=== PATIENT | male | born 1990 | race Caucasian/White ===

== ENCOUNTER 2022-07-13 01:56 | Emergency (ER) | payer OTHER ==
[~2022-07-13 01:56] MED LIST: CLARITIN10 MG PO; MOTRIN800 MG PO
[2022-07-13 02:30] LABS: BASO # 0.1 10*3/uL (0.0-0.1); BASO % 0.7 % (0.0-1.0); EOS # 0.4 10*3/uL (0.0-0.4); HEMATOCRIT 39.9 % (42.0-52.0); LYMPH # 2.3 10*3/uL (1.3-4.4); LYMPH % 26.9 % (27.0-41.0); MEAN CELL VOLUME 86.9 fl (80.0-94.0); MEAN CORPUSCULAR HGB 30.1 pg (27.0-31.0); MEAN CORPUSCULAR HGB CONC 34.6 g/dl (33.0-37.0); MEAN PLATELET VOLUME 8.4 fl (9.6-12.3); MONO # 0.7 10*3/uL (0.1-1.0); MONO % 8.3 % (3.0-9.0); NEUT # 5.1 10*3/uL (2.3-7.9); NEUT % 58.8 % (47.0-73.0); PLATELET COUNT AUTOMATED 342 10*3/uL (130-400); RED BLOOD COUNT 4.59 10*6/uL (4.50-5.90); RED CELL DISTRI WIDTH 11.8 % (0-14.5); WHITE BLOOD COUNT 8.6 10*3/uL (4.8-10.8)
[2022-07-13 02:53] LABS: ALKALINE PHOSPHATASE 136 U/L (45-117); BUN 21 mg/dl (7-24); CHLORIDE 106 mmol/L (98-107); CREATININE 1.19 mg/dL (0.70-1.30); POTASSIUM 3.3 mmol/L (3.5-5.1); SGOT/AST 16 IU/L (3-35); SGPT/ALT 24 U/L (12-78); SODIUM 138 mmol/L (136-145); TOTAL PROTEIN 7.5 gm/dL (6.4-8.2)
[2022-07-13 04:01] LABS: BILIRUBIN Negative (Negative); BLOOD 2+ (Negative); CLARITY Turbid (Clear); COLOR Dark Yellow (Yellow); GLUCOSE Negative (Negative); KETONE Trace (Negative); LEUKO ESTERASE 2+ (Negative); NITRITE Negative (Negative); PH 5.5 (4.5-8.0); SPECIFIC GRAVITY >= 1.030 (1.001-1.030)
[2022-07-13 04:13] LABS: BACTERIA 2+; RBC 16-20 rbc/hpf (0-2); WBC 31-40 wbc/hpf (0-5)
[2022-07-13] MEDS ORDERED: CEPHALEXIN500 M1 PO (06:22)
== END 2022-07-13 06:30 | disposition home or self-care (01) ==
LOC: ED 01:56
PROVIDERS: Emergency Medicine
DX: N39.0 Urinary tract infection, site not specified (principal); N13.2 Hydronephrosis with renal and ureteral calculous obstruction; Z91.040 Latex allergy status

== ENCOUNTER 2023-02-13 21:23 | Emergency (ER) | payer OTHER ==
[~2023-02-13 21:23] MED LIST changes: +CEPHALEXIN500 M1 PO
== END 2023-02-13 22:41 | disposition home or self-care (01) ==
LOC: ED 21:23
DX: S69.91XA Unspecified injury of right wrist, hand and finger(s), initial encounter (principal); Z91.040 Latex allergy status; Z98.890 Other specified postprocedural states; W26.8XXA Contact with other sharp object(s), not elsewhere classified, initial encounter; Y93.89 Activity, other specified; Y92.89 Other specified places as the place of occurrence of the external cause; Y99.8 Other external cause status